=== PATIENT | male | born 1955 | race Caucasian/White ===

== ENCOUNTER → 2019-09-10 | Outpatient (CLI) | payer MEDICARE ==
--- NOTE | 2019-09-10 20:26 | REP ---
PET/CT: History: Lung nodules. Comparison CT study of the chest is from July 04, 2019. TECHNIQUE: 50 minutes following the intravenous injection of a 8.98 mCi dose of F-18 FDG, three-dimensional PET scintigraphy is acquired from the skull base to the proximal thighs. Triplanar noncontrast CT scanning is acquired through the same anatomic range for attenuation correction, and image registration with scan parameters optimized to minimize radiation exposure to the patient. PET scintigraphy and CT datasets were fused and displayed on a workstation with multiplanar and projection display capability. PET/CT Findings: There is no abnormal hypermetabolic pulmonary parenchymal uptake. There is focal uptake in the left hilus anteriorly adjacent to the left lower lobe bronchus, which may be a left hilar lymph node. Maximum standard uptake value here is 4.53. This is minimally increased. Background vascular uptake is in the range of 3.0. There is no discernible FDG accumulation in any of the pulmonary parenchymal nodular densities although it should be kept in mind that these are all small. No other abnormal thoracic uptake is seen. Head and neck soft tissues are unremarkable. In the abdomen and pelvis, there is normal distribution of FDG. There is a cyst in the left kidney. No abnormal abdominal or pelvic hypermetabolic uptake is seen. The left hip arthroplasty is noted. Impression: There is equivocally increased uptake in the left hilus which could be referable to a lymph node, although I do not resolve a lymph node on the recent chest CT or on the accompanying chest CT. This is of uncertain significance. No abnormal uptake is seen in the pulmonary parenchyma in any of the nodules seen on recent chest CT. Follow-up is advised. Consider contrast enhanced chest CT study. Electronically Signed by Jose Mcclelland MD 09/11/2019 12:50 P
== END ==
LOC: M PLARAD 15:27
PROVIDERS: ATTEND Internal Medicine
DX: R91.8 Other nonspecific abnormal finding of lung field (principal); N28.1 Cyst of kidney, acquired
CPT/HCPCS: 78815; A9552

== ENCOUNTER → 2021-12-20 | Outpatient (CLI) | payer MEDICARE | LOC: M PLAIMG 10:10 | PROVIDERS: ATTEND Internal Medicine Pulmonary Disease | DX: R91.8 Other nonspecific abnormal finding of lung field (principal) ==

== ENCOUNTER → 2022-09-30 | Outpatient (REF) | payer MEDICARE | LOC: M LAB REF 16:33 | PROVIDERS: ATTEND Internal Medicine | DX: M10.9 Gout, unspecified (principal) ==

== ENCOUNTER → 2024-02-20 | Outpatient (REF) | payer MEDICARE ==
[2024-02-20 17:34] LABS: RSV AMPLIFICATION NEGATIVE (NEGATIVE)
== END ==
LOC: M LAB REF 16:20
PROVIDERS: ATTEND Nurse Practitioner Family
DX: R05.1 Acute cough (principal)

== ENCOUNTER → 2024-04-15 | Outpatient (CLI) | payer MEDICARE | LOC: M PLAIMG 13:24 | PROVIDERS: ATTEND Nurse Practitioner Family | DX: R91.1 Solitary pulmonary nodule (principal); N28.1 Cyst of kidney, acquired ==

== ENCOUNTER → 2024-08-06 | Outpatient (CLI) | payer MEDICARE ==
[~2024-08-06] MED LIST: METHACHOLINE KIT (6 VIAL.NEB PREMIX) INH ONE
== END ==
LOC: M CARPUL 09:38
PROVIDERS: ATTEND Internal Medicine Pulmonary Disease
DX: R05.9 Cough, unspecified (principal)
CPT/HCPCS: 88738; 94010; 94070; 94726; 94729; 95070; J7674

== ENCOUNTER → 2024-10-29 | Outpatient (REF) | payer MEDICARE | LOC: M LAB REF 13:36 | PROVIDERS: ATTEND Surgery | DX: L72.3 Sebaceous cyst (principal) ==

== ENCOUNTER → 2025-05-08 | Outpatient (CLI) | payer MEDICARE ==
[~2025-05-08] MED LIST changes: +AMLO1TAB24 PO; +LEVO75TA4 PO; +LOSA25TA13 PO; -METHACHOLINE KIT (6 VIAL.NEB PREMIX) INH ONE; +TAMS1CAP17 PO; +XALA0.007
== END ==
LOC: M PLAIMG 10:16
PROVIDERS: ATTEND Internal Medicine Pulmonary Disease
DX: R91.8 Other nonspecific abnormal finding of lung field (principal)

== ENCOUNTER 2025-05-15 09:05 | Day surgery (SDC) | payer MEDICARE ==
[~2025-05-15] VITALS: Ht 182.9 cm; Wt 89.6 kg
[2025-05-15] MEDS ORDERED: LIDOCAINE 2% 100 MG/5 ML SDV (FOR ANES.) As Ordered ONE (10:54)
[2025-05-15 11:02] VITALS: TEMP 98.4
[2025-05-15 11:19] VITALS: BP 141/91; O2SAT 99
== END 2025-05-15 11:29 | disposition home or self-care (01) ==
LOC: M OPP 09:05
PROVIDERS: ATTEND Surgery
DX: D12.6 Benign neoplasm of colon, unspecified (principal); K57.30 Diverticulosis of large intestine without perforation or abscess without bleeding; Z86.0100 Personal history of colon polyps, unspecified; G47.30 Sleep apnea, unspecified; Z79.899 Other long term (current) drug therapy